=== PATIENT | male | born 1990 | race Two or more races ===

== ENCOUNTER 2023-10-06 23:29 | Emergency (ER) | payer OTHER ==
[~2023-10-06] VITALS: Ht 180.3 cm; Wt 86.2 kg
[2023-10-07 02:00] LABS: HEMATOCRIT 38.5 % (39.0-48.0); HEMOGLOBIN 13.1 g/dL (13-16.00); MEAN CELL VOLUME 88.6 fL (80.0-100.00); MEAN CORPUSCULAR HEMOGLOBIN 30.1 pg (27.00-32.0); MEAN CORPUSCULAR HGB CONC 33.9 g/dl (32.0-36.0); PLATELET COUNT 210 K/uL (150-450); RED BLOOD COUNT 4.35 M/uL (4.00-6.00); RED CELL DISTRIBUTION WIDTH 14.2 % (11.5-14.5)
[2023-10-07 02:02] LABS: PH,URINE 6.5 (5.0-8.0); URINE APPEARANCE Clear; URINE BILIRRUBIN Negative (NEGATIVE); URINE BLOOD Negative; URINE COLOR Yellow; URINE GLUCOSE Negative (NEGATIVE); URINE LEUKOCYTE Negative; URINE NITRATE Negative; URINE PROTEIN Negative (NEGATIVE)
[2023-10-07 02:06] LABS: URINE BACTERIA 8.8 uL (0.0-1933); URINE RBC 8.7 uL (0.0-20.8); URINE WBC 2.7 uL (0.0-23.2)
[2023-10-07 02:07] LABS: URINE EPITHELIAL CELLS 0.7 uL (0.0-38.8)
[2023-10-07 02:15] LABS: CALCIUM 9.4 mg/dL (8.5-10.1); CREATININE SERUM 1.14 mg/dL (0.70-1.30); GFR 73.98; POTASSIUM 4.01 mEq/L (3.5-5.1)
[2023-10-07] MEDS ORDERED: INTESTINEX680 M1 PO (06:43)
[2023-10-07] MEDS ORDERED: LEVSIN/SL0.125 MG SL (06:43)
== END 2023-10-07 06:47 ==
LOC: ER 23:29
PROVIDERS: General Practice
DX: R10.32 Left lower quadrant pain (principal); D18.09 Hemangioma of other sites; Z88.6 Allergy status to analgesic agent